=== PATIENT | female | born 1985 | race Caucasian/White ===

== ENCOUNTER 2020-08-04 07:11 | Outpatient (CLI) | payer OTHER ==
--- NOTE | 2020-08-04 10:01 | XRAY Report ---
PROCEDURE: Hips 2V BILAT INDICATIONS: PELVIC PAIN TECHNIQUE: 2 views of the hip were acquired. COMPARISON: None FINDINGS: Bones: No fractures or dislocations but there has been prior operative fixation crossing the superio r obturator rings bilaterally by a long cancellous screws, and also crossing the left sacroiliac join t transversely also by a long cancellous screw. The tip of each of the obturator rings screws overlie the joint spaces, on the frontal projections for this study through the pelvis. This does not indica te certainty of intra-articular positioning.. No suspicious bony lesions. The visualized pelvic rin g appears intact. Soft tissues: No suspicious soft tissue calcifications or masses. IMPRESSION: Normal alignment maintained by the 3 fixation screws presumably related to prior severe pelvic trauma . As discussed, the 2 diagonal superior obturator ring screws have their tips superimposed on the sheyla nt space bilaterally, with exact positioning indeterminate by the frontal views alone. CT scanning wo uld provide a more accurate assessment for screw tip positioning if clinically indicated. Prior rich rison studies likely would establish this positioning. None are available for review. Reviewed by: Fabian Beasley MD on 08/04/2020 9:59 AM PST Approved by: Fabian Beasley MD on 08/04/2020 9:59 AM PST Station ID: [id number]
--- NOTE | 2020-08-04 10:02 | XRAY Report ---
PROCEDURE: Lumbar Spine 2 View INDICATIONS: LOW BACK AND PELVIC PAIN TECHNIQUE: 2 views of the lumbar spine were acquired. COMPARISON: None. FINDINGS: Bones: 5 [id number] vertebrae are present. There is normal bony alignment. No vertebral body compression fractures. No suspicious bony lesions. Soft tissues: Overlying bowel gas pattern is normal. No suspicious soft tissue calcifications. IMPRESSION: A transverse fixation screw crosses the left sacroiliac joint, related to prior pelvic f ixation for trauma. Note is made on the lateral view of the expected positioning. 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 Reviewed by: Fabian Beasley MD on 08/04/2020 10:00 AM [facility] Approved by: Fabian Beasley MD on 08/04/2020 10:00 AM PST Station ID: [id number]
[2020-08-04 14:40] LABS: BASOPHILS # (AUTO) 0.1 10^3/uL (0.0-0.1); EOSINOPHILS # (AUTO) 0.2 10^3/uL (0.0-0.7); EOSINOPHILS % (AUTO) 2.4 %; HGB - HEMOGLOBIN 12.9 g/dL (12.0-16.0); LYMPHOCYTES # (AUTO) 1.8 10^3/uL (1.5-3.5); LYMPHOCYTES % (AUTO) 28.8 %; MEAN CORPUSCULAR HEMOGLOBIN 29.6 pg (27.0-31.0); MEAN CORPUSCULAR HGB CONC 30.6 g/dL (32.0-36.0); MEAN CORPUSCULAR VOLUME 96.6 fL (81.0-99.0); MEAN PLATELET VOLUME 10.2 fL (7.9-10.8); MONOCYTES # (AUTO) 0.4 10^3/uL (0.0-1.0); MONOCYTES % (AUTO) 5.6 %; NEUTROPHILS # (AUTO) 3.9 10^3/uL (1.5-6.6); NEUTROPHILS % (AUTO) 61.7 %; PLT - PLATELET COUNT 303 10^3/uL (130-450); RED BLOOD COUNT 4.36 10^6/uL (4.20-5.40); WHITE BLOOD COUNT 6.3 x10^3/uL (4.8-10.8)
[2020-08-04 15:02] LABS: ALBUMIN 4.4 g/dL (3.2-5.5); ALBUMIN/GLOBULIN RATIO 1.4 (1.0-2.2); BILIRUBIN,TOTAL 0.6 mg/dL (0.2-1.0); CALCIUM 9.1 mg/dL (8.5-10.3); CREATININE 0.5 mg/dL (0.4-1.0); TOTAL PROTEIN 7.5 g/dL (6.7-8.2)
== END 2020-08-04 07:12 | disposition home or self-care (01) ==
LOC: DI.S 07:11
PROVIDERS: ATTEND Registered Nurse
DX: M54.5 Low back pain (principal); R10.2 Pelvic and perineal pain; M47.817 Spondylosis without myelopathy or radiculopathy, lumbosacral region; E04.1 Nontoxic single thyroid nodule; Z13.0 Encounter for screening for diseases of the blood and blood-forming organs and certain disorders involving the immune mechanism; Z13.228 Encounter for screening for other metabolic disorders
CPT/HCPCS: 36415; 80053; 84443; 85025